=== PATIENT | male | born 1985 | race Caucasian/White ===

== ENCOUNTER 2021-11-09 05:24 | Emergency (ER) | payer SELFPAY ==
[~2021-11-09] VITALS: Ht 182.9 cm; Wt 94.5 kg
[2021-11-09 07:10] LABS: STREP SCREEN NEGATIVE
[2021-11-09 07:12] LABS: CALCIUM 8.9 mg/dL (8.4-10.2); CREATININE, serum 1.03 mg/dL (0.72-1.25); POTASSIUM 3.7 mmol/L (3.5-4.5)
[2021-11-09 07:18] LABS: BASO % 0.4 % (0.0-2.0); EOS % 0.4 % (0.0-4.0); GRAN # 4.7 K/mm3 (1.4-6.5); GRAN % 64.9 % (42.2-75.2); HEMATOCRIT 43.7 % (42.0-52.0); HEMOGLOBIN 14.9 g/dl (13.5-18.0); LYMPH # 1.6 K/mm3 (1.2-3.4); LYMPH % 22.7 % (20.0-51.0); MEAN CELL VOLUME 83 fl (80.0-100.0); MEAN CORPUSCULAR HEMOGLOBIN 28 pg (27-31); MEAN CORPUSCULAR HGB CONC 34 g/dl (33.0-37.0); MEAN PLATELET VOLUME 10.3 fl (7.4-10.4); MONO # 0.8 K/mm3 (0.1-0.6); MONO % 11.3 % (1.7-9.3); PLATELET COUNT 215 K/mm3 (130-400); RED BLOOD COUNT 5.27 M/mm3 (4.20-5.60)
[2021-11-09 08:45] VITALS: BP 124/79; PULSE 85; TEMP 99.3
== END 2021-11-09 08:45 | disposition home or self-care (01) ==
LOC: COL.ER 05:24
PROVIDERS: Emergency Medicine
DX: U07.1 COVID-19 (principal); Z28.310 Unvaccinated for COVID-19
CPT/HCPCS: J1100; J1885; J7030; Q9967